=== PATIENT | male | born 1965 | race Caucasian/White ===

== ENCOUNTER → 2016-09-05 | Outpatient (CLI) | payer BC ==
[2016-09-05 11:54] LABS: MEAN CORPUSCULAR VOLUME 89 FL (80-100); MEAN PLATELET VOLUME 9.4 FL (6.0-9.5); PLATELET COUNT 241 10^3uL (150-450); WHITE BLOOD COUNT 8.04 10^3uL (4.0-11.0)
[2016-09-05 12:08] LABS: ALBUMIN 4.9 g/dL (3.4-5.0); ANION GAP 16.3 MEQ/L (3-15); MAGNESIUM* 1.9 mg/dL (1.6-2.3); PHOSPHORUS 3.4 mg/dL (2.4-4.9); TOTAL PROTEIN 8.2 g/dL (6.4-8.5)
[2016-09-05 12:10] LABS: MEAN CORPUSCULAR HEMOGLOBIN 31.8 PG (26.0-34.0); MEAN CORPUSCULAR HGB CONC 35.8 g/dL (31.0-37.0)
[2016-09-05 12:52] LABS: BAND NEUTROPHILS % 0 % (0-6); EOSINOPHILS % 0 % (0-4); LYMPHOCYTES # 1.8 #; MONOCYTES # 0.6 #; MONOCYTES % 7 % (3-11); RBC MORPH NORMAL (NORMAL); SEGMENTED NEUTROPHILS % 70 % (51-67); TOTAL CELLS COUNTED 100
== END ==
LOC: LAB 11:36
PROVIDERS: ATTEND Internal Medicine Hematology & Oncology
DX: C18.2 Malignant neoplasm of ascending colon (principal)
CPT/HCPCS: 36415; 80053; 82378; 83615; 83735; 84100; 85007; 85027